=== PATIENT | female | born 1980 | race Caucasian/White ===

== ENCOUNTER → 2023-10-19 06:33 | Day surgery (SDC) | payer OTHER, SELFPAY | LOC: GI 06:33 | PROVIDERS: ATTENDING PHYSICIAN Internal Medicine; FAMILY PHYSICIAN Internal Medicine | DX: Z12.11 Encounter for screening for malignant neoplasm of colon (principal); K63.5 Polyp of colon | CPT/HCPCS: 45385; 88305 ==

== ENCOUNTER → 2024-01-02 09:46 | Outpatient (REF) | payer OTHER, SELFPAY | LOC: WDC 09:46 | PROVIDERS: ATTENDING PHYSICIAN Nurse Practitioner | DX: N64.4 Mastodynia (principal); N63.21 Unspecified lump in the left breast, upper outer quadrant | CPT/HCPCS: 76642; 77061; 77065 ==

== ENCOUNTER → 2024-01-26 12:46 | Outpatient (REF) | payer OTHER, SELFPAY | LOC: WDC 12:46 | PROVIDERS: ATTENDING PHYSICIAN Surgery; FAMILY PHYSICIAN Nurse Practitioner | DX: R92.2 Inconclusive mammogram (principal) | CPT/HCPCS: 76641 ==

== ENCOUNTER → 2024-05-22 10:23 | Outpatient (REF) | payer OTHER, SELFPAY | LOC: WDC 10:23 | PROVIDERS: ATTENDING PHYSICIAN Surgery; FAMILY PHYSICIAN Nurse Practitioner | DX: N63.11 Unspecified lump in the right breast, upper outer quadrant (principal); R92.8 Other abnormal and inconclusive findings on diagnostic imaging of breast | CPT/HCPCS: 76642; 77062; 77066 ==

== ENCOUNTER → 2024-07-11 09:08 | Outpatient (REF) | payer OTHER, SELFPAY | LOC: HWRAD 09:08 | PROVIDERS: ATTENDING PHYSICIAN Physician Assistant; FAMILY PHYSICIAN Nurse Practitioner | DX: J32.8 Other chronic sinusitis (principal) | CPT/HCPCS: 70486 ==

== ENCOUNTER → 2024-07-29 11:06 | Outpatient (REF) | payer OTHER, SELFPAY | LOC: RAD 11:06 | PROVIDERS: ATTENDING PHYSICIAN Physician Assistant; FAMILY PHYSICIAN Nurse Practitioner | DX: R05.3 Chronic cough (principal) | CPT/HCPCS: 71046 ==

== ENCOUNTER → 2024-08-02 15:30 | Outpatient (REF) | payer OTHER, SELFPAY | LOC: CLAB 15:30 | PROVIDERS: ATTENDING PHYSICIAN Physician Assistant | DX: J32.8 Other chronic sinusitis (principal); J30.9 Allergic rhinitis, unspecified | CPT/HCPCS: 87070; 87205 ==

== ENCOUNTER → 2024-09-30 08:59 | Outpatient (REF) | payer BC, SELFPAY | LOC: HWRAD 08:59 | PROVIDERS: ATTENDING PHYSICIAN Internal Medicine Critical Care Medicine; FAMILY PHYSICIAN Nurse Practitioner; OTHER PHYSICIAN Surgery; REFERRING PHYSICIAN Otolaryngology | DX: J90 Pleural effusion, not elsewhere classified (principal); Z87.81 Personal history of (healed) traumatic fracture | CPT/HCPCS: 71250 ==

== ENCOUNTER 2025-04-17 07:28 | Outpatient (RCR) | payer BC, SELFPAY | END 2025-04-17 23:59 | disposition home or self-care (01) | LOC: RPT 07:28 | PROVIDERS: ATTENDING PHYSICIAN Nurse Practitioner | DX: S06.0X0D Concussion without loss of consciousness, subsequent encounter (principal); Z73.6 Limitation of activities due to disability; W19.XXXD Unspecified fall, subsequent encounter | CPT/HCPCS: 97112; 97162 ==

== ENCOUNTER 2025-04-24 06:49 | Outpatient (RCR) | payer BC, SELFPAY | END 2025-04-24 23:59 | disposition home or self-care (01) | LOC: RPT 06:49 | PROVIDERS: ATTENDING PHYSICIAN Nurse Practitioner | DX: S06.0X0D Concussion without loss of consciousness, subsequent encounter (principal); Z73.6 Limitation of activities due to disability; W19.XXXD Unspecified fall, subsequent encounter | CPT/HCPCS: 97010; 97110; 97112 ==

== ENCOUNTER → 2025-04-24 09:33 | Outpatient (REF) | payer BC, SELFPAY | LOC: WDC 09:33 | PROVIDERS: ATTENDING PHYSICIAN Nurse Practitioner | DX: R92.8 Other abnormal and inconclusive findings on diagnostic imaging of breast (principal) | CPT/HCPCS: 76642; 77062; 77066 ==